=== PATIENT | male | born 1955 | race Caucasian/White ===

== ENCOUNTER 2017-06-04 15:06 | Emergency (ER) | payer MEDICARE, OTHER ==
[2017-06-04] MEDS ORDERED: HYDROcodone/APAP 5-325MG 1 EACH TAB ONE (20:14)
--- NOTE | 2017-06-05 14:39 | XR ---
EXAMINATION TYPE: Abdominal radiographs DATE OF EXAM: 06/04/2017 6:26 PM CLINICAL HISTORY: Chronic abdominal pain TECHNIQUE: Abdominal upright and decubitus radiograph's were obtained. COMPARISON: CT abdomen pelvis dated 04/15/2016 FINDINGS: Numerous loops of dilated large bowel measuring up to 8.7 cm within the transverse colon. T his is mildly progressed from the CT abdomen pelvis dated 04/15/2016 where the colon measured up to 7. 6 cm. There is also gaseous distention of loops of small bowel. No pneumoperitoneum is seen. Thin pro peritoneal fat stripe is noted. Lung bases remain clear. S-shaped scoliotic curvature of the thoracol umbar spine is present. Left femoral arthroplasty is noted as well as mild to moderate degenerative c hanges of the right femoral acetabular joint. IMPRESSION: Chronic gaseous dilation of large bowel loops with distal rectal gas noted suggestive of chronic ileus/Olgivie's syndrome as these findings are only mildly progressed from the exam of 016.
--- NOTE | 2017-06-22 08:45 | CDI ---
Documentation Clarification OP Dear Hazel Brock Please do addendum to ED report for missing Clinical impression. Thank you, Antonio You Energy Conservation Representative If you have any questions, please contact Licensed Staff [facility] at [phone] [facility]
== END 2017-06-04 20:18 | disposition home or self-care (01) ==
LOC: EC 15:06
DX: K63.89 Other specified diseases of intestine (principal); R93.8 Abnormal findings on diagnostic imaging of other specified body structures; Q85.00 Neurofibromatosis, unspecified; M41.86 Other forms of scoliosis, lumbar region; M25.511 Pain in right shoulder; K52.9 Noninfective gastroenteritis and colitis, unspecified
CPT/HCPCS: 74020; 99283

== ENCOUNTER → 2018-05-13 | Outpatient (CLI) | payer MEDICARE, OTHER ==
--- NOTE | 2018-05-13 09:35 | US ---
EXAMINATION TYPE: US kidneys/renal and bladder DATE OF EXAM: 05/13/2018 COMPARISON: CLINICAL HISTORY: R39.14 incomplete bladder emptying, N40.1.... No pain. hx of enlarged bladder. EXAM MEASUREMENTS: Right Kidney: 9.8 x 5.3 x 4.4 cm Left Kidney: 11.2 x 5.5 x 6.5 cm Post Void Residual Volume: 322.2 mL Right Kidney: wnl Left Kidney: appears lobular in appearance Bladder: bladder wall = 3.8 mm, distended Bilateral Jets seen Normal Post Void Residual: no Prominent prostate= 7.4 x 6.3 x 5.9 cm There is no evidence for hydronephrosis at this point in time. No nephrolithiasis is seen. No julian s are identified. The urinary bladder is anechoic. Bilateral ureteral jets are seen. IMPRESSION: 1. Prostate glandular enlargement.
== END | disposition home or self-care (01) ==
LOC: RADUSWWP 08:39
PROVIDERS: ATTEND Urology
DX: N40.0 Benign prostatic hyperplasia without lower urinary tract symptoms (principal); Z88.5 Allergy status to narcotic agent
CPT/HCPCS: 76770

== ENCOUNTER → 2018-10-24 | Outpatient (CLI) | payer MEDICARE, OTHER ==
[2018-10-24 21:28] LABS: Dermato. farinae IgE <0.10 kU/L; Red Top (Bentgrass) IgE <0.10 kU/L
[2018-10-24 21:29] LABS: Cat Epith & Dander IgE <0.10 kU/L; Dog Dander IgE <0.10 kU/L
[2018-10-24 21:31] LABS: Alternaria alternata IgE <0.10 kU/L; Cockroach IgE <0.10 kU/L; Maple (Box Elder) IgE <0.10 kU/L
[2018-10-24 21:32] LABS: Birch IgE <0.10 kU/L; Elm IgE <0.10 kU/L; Oak IgE <0.10 kU/L
[2018-10-24 21:33] LABS: Ragweed,Common IgE <0.10 kU/L
[2018-10-24 21:36] LABS: Codfish IgE <0.10 kU/L; Egg White IgE <0.10 kU/L; Peanut IgE <0.10 kU/L; Soybean IgE <0.10 kU/L
[2018-10-24 21:37] LABS: Clam IgE <0.10 kU/L; Shrimp IgE <0.10 kU/L; Walnut IgE (Food) <0.10 kU/L
[2018-10-24 21:38] LABS: Scallop IgE <0.10 kU/L
[2018-10-24 21:40] LABS: Immunoglobulin E 1.14 IU/mL (0.00-114.00)
[2018-10-24 21:41] LABS: Immunoglobulin E <1.00 IU/mL (0.00-114.00)
== END ==
LOC: LABWHC1 14:04
PROVIDERS: ATTEND Internal Medicine Critical Care Medicine
DX: J45.40 Moderate persistent asthma, uncomplicated (principal)
CPT/HCPCS: 36415; 82785; 86003

== ENCOUNTER → 2020-10-22 | Outpatient (CLI) | payer MEDICARE, OTHER ==
--- NOTE | 2020-10-23 07:11 | US ---
EXAMINATION TYPE: US venous doppler duplex LE LT DATE OF EXAM: 10/22/2020 3:58 PM COMPARISON: NONE CLINICAL HISTORY: R22.42 Swelling left leg. Edema SIDE PERFORMED: Left TECHNIQUE: The lower extremity deep venous system is examined utilizing real time linear array sonog tito with graded compression, doppler sonography and color-flow sonography. VESSELS IMAGED: Common Femoral Vein Deep Femoral Vein Greater Saphenous Vein * Femoral Vein Popliteal Vein Small Saphenous Vein * Proximal Calf Veins (* superficial vessels) Left Leg: Negative for DVT IMPRESSION: No evidence for DVT.
== END | disposition home or self-care (01) ==
LOC: RADUSWWP 15:35
PROVIDERS: ATTEND Internal Medicine
DX: R22.42 Localized swelling, mass and lump, left lower limb (principal); R60.9 Edema, unspecified

== ENCOUNTER 2022-09-30 11:07 | Emergency (ER) | payer MEDICARE, OTHER ==
[2022-09-30 11:17] VITALS: TEMP 97.8
[2022-09-30] MEDS ORDERED: SODIUM CHLORIDE 0.9% 1,000 ML IV STA (11:23)
--- NOTE | 2022-09-30 11:31 | ED ---
General Adult HPI - General Chief complaint: Syncope Stated complaint: Syncope Time Seen by Provider: 09/30/22 11:12 Source: patient, RN notes reviewed Mode of arrival: EMS Limitations: no limitations - History of Present Illness Initial comments: Patient is a pleasant 67-year-old male presenting to the emergency department for near syncopal episode. Episode occurred just prior to arrival while using the restroom. Patient suddenly felt dizzy. Patient did feel a little bit like he was spinning however that has resolved. Patient only feels lightheaded this time without other specific complaints. No history of similar symptoms previously. No chest pain or dyspnea. No weakness or confusion. No abdominal or back pain. - Related Data Home Medications Medication Instructions Recorded Confirmed Aspirin EC [Ecotrin Low Dose] 81 mg PO DAILY 04/15/16 09/30/22 Atorvastatin Calcium [Lipitor] 40 mg PO DAILY 04/15/16 09/30/22 Finasteride [Proscar] 5 mg PO DAILY 04/15/16 09/30/22 Fluticasone Propion/Salmeterol 1 puff INHALATION RT-BID 04/15/16 09/30/22 [Advair 250-50 Diskus] Folic Acid 0.8 mg PO DAILY 04/15/16 09/30/22 Meclizine [Antivert] 25 mg PO TID PRN 04/15/16 09/30/22 Albuterol Sulfate [Proair Hfa] 2 puff INHALATION RT-Q4H PRN 06/05/17 09/30/22 Cetirizine HCl [Zyrtec] 10 mg PO HS 06/05/17 09/30/22 DULoxetine HCL [Cymbalta] 60 mg PO HS 06/05/17 09/30/22 Primidone [Mysoline] 250 mg PO BID 06/05/17 09/30/22 Acetaminophen [Tylenol 8 Hour] 1,300 mg PO BID 09/30/22 09/30/22 [place] Shampoo [T-Gel] 1 applic TOPICAL Q48H 09/30/22 09/30/22 Docusate [Colace] 100 mg PO HS 09/30/22 09/30/22 Famotidine [Pepcid] 40 mg PO BID 09/30/22 09/30/22 Hydrocortisone Cream 1 applic TOPICAL BID PRN 09/30/22 09/30/22 [Hydrocortisone 2.5% Cream] Ketoconazole 2% Shampoo [Nizoral] 1 applic TOPICAL Q48H 09/30/22 09/30/22 Lubiprostone [Amitiza] 24 mcg PO DAILY 09/30/22 09/30/22 tiZANidine [Zanaflex] 4 mg PO BID 09/30/22 09/30/22 tiZANidine [Zanaflex] 4 mg PO DAILY@1300 PRN 09/30/22 09/30/22 Allergies Allergy/AdvReac Type Severity Reaction Status Date / Time morphine AdvReac Severe Does not Verified 09/30/22 12:58 tolerate well Review of Systems ROS Statement: Those systems with pertinent positive or pertinent negative responses have been documented in the HPI. ROS Other: All systems not noted in ROS Statement are negative. Constitutional: Denies: fever Eyes: Denies: eye pain ENT: Denies: ear pain Respiratory: Denies: cough Cardiovascular: Denies: chest pain Endocrine: Denies: fatigue Gastrointestinal: Denies: abdominal pain Genitourinary: Denies: dysuria Musculoskeletal: Denies: back pain Skin: Denies: rash Neurological: Reports: as per HPI. Denies: headache, weakness, confusion Past Medical History Past Medical History: Asthma, Hyperlipidemia, Neurologic Disorder, Pneumonia, Syncope Additional Past Medical History / Comment(s): neurofibramatosis disease; Scoliosis; Tremor; Duodenal carcinoid tumor History of Any Multi-Drug Resistant Organisms: None Reported Past Surgical History: Bowel Resection, Joint Replacement Additional Past Surgical History / Comment(s): Left total hip Past Anesthesia/Blood Transfusion Reactions: No Reported Reaction Past Psychological History: Depression Past Alcohol Use History: None Reported Past Drug Use History: None Reported - Past Family History Mother Family Medical History: COPD Additional Family Medical History / Comment(s): at 80 Father Family Medical History: Myocardial Infarction (NE) Additional Family Medical History / Comment(s): at age 55 General Exam Limitations: no limitations General appearance: alert, in no apparent distress Head exam: Present: normocephalic Eye exam: Present: normal appearance Neck exam: Present: normal inspection Respiratory exam: Present: normal lung sounds bilaterally Cardiovascular Exam: Present: regular rate, normal rhythm Expanded Peripheral pulses: 2+: Radial (R), Radial (L), Dorsalis Pedis (R), Dorsalis Pedis (L) GI/Abdominal exam: Present: soft. Absent: tenderness, pulsatile mass Extremities exam: Present: normal inspection. Absent: pedal edema, calf tenderness Neurological exam: Present: alert, oriented X3, CN II-XII intact. Absent: motor sensory deficit Expanded Neurological exam: Present: protecting the airway Patient oriented to: Present: person, place, time Speech: Present: fluid speech Motor strength exam: RUE: 5, LUE: 5, RLE: 5, LLE: 5 Eye Response: (4) open spontaneously Motor Response: (6) obeys commands Verbal Response: (5) oriented Psychiatric exam: Present: normal affect, normal mood Skin exam: Present: other (Diffuse lesions consistent with neurofibromatosis) Course Vital Signs 09/30/22 09/30/22 09/30/22 11:10 13:18 13:20 Temperature 97.8 F Pulse Rate 94 Pulse Rate [ 80 Sitting Table Games Floor Supervisor] Pulse Rate [ Standing Table Games Floor Supervisor ] Pulse Rate [ 86 Supine Table Games Floor Supervisor] Respiratory 18 19 17 Rate Blood Pressure 113/80 Blood Pressure 110/77 [Left Arm Sitting] Blood Pressure [Left Arm Standing] Blood Pressure 108/83 [Left Arm Supine] Blood Pressure 108/83 [Left Arm] O2 Sat by Pulse 99 98 100 Oximetry 09/30/22 13:22 Temperature Pulse Rate Pulse Rate [ Sitting Table Games Floor Supervisor] Pulse Rate [ 100 Standing Table Games Floor Supervisor ] Pulse Rate [ Supine Table Games Floor Supervisor] Respiratory 20 Rate Blood Pressure Blood Pressure [Left Arm Sitting] Blood Pressure 103/69 [Left Arm Standing] Blood Pressure [Left Arm Supine] Blood Pressure [Left Arm] O2 Sat by Pulse 95 Oximetry EKG Findings - EKG Results: EKG: interpreted by ERMD (Incomplete right bundle-branch block), sinus rhythm, normal axis, normal ST/T Medical Decision Making - Medical Decision Making Was pt. sent in by a medical professional or institution (, PA, BARMAN, urgent care, hospital, or shelter...) When possible be specific @ -No Did you speak to anyone other than the patient for history (EMS, parent, family, police, friend...)? What history was obtained from this source @ -No Did you review nursing and triage notes (agree or disagree)? Why? @ -I reviewed and agree with nursing and triage notes Were old charts reviewed (outside hosp., previous admission, EMS record, old EK G, old radiological studies, urgent care reports/EKG's, shelter records)? Report findings @ -No old charts were reviewed Differential Diagnosis (chest pain, altered mental status, abdominal pain women, abdominal pain men, vaginal bleeding, weakness, fever, dyspnea, syncope, headache, dizziness, GI bleed, back pain, seizure, CVA, palpatations, mental health)? @ -Differential Syncope: Valvular disease, hypertrophic cardiomyopathy, pulmonary embolism, tamponade, tachycardia, bradycardia, NE, hypovolemia, hemorrhage, dissection, anemia, intracranial hemorrhage, seizure, hypoglycemia, carbon monoxide poisoning, this is not meant to be an all-inclusive list. EKG interpreted by me (3pts min.). @ -As above X-rays interpreted by me (1pt min.). @ -2 view chest x-ray reveals no acute process. Spine curvature CT interpreted by me (1pt min.). @ -Report reviewed U/S interpreted by me (1pt. min.). @ -None done What testing was considered but not performed or refused? (CT, X-rays, U/S, labs)? Why? @ -None What meds were considered but not given or refused? Why? @ -None Did you discuss the management of the patient with other professionals (professionals i.e. , PA, BARMAN, lab, RT, psych nurse, high school social science teacher, pumping supervisor, teacher, founder and chief executive officer, case filler)? Give summary @ -No Was smoking cessation discussed for >3mins.? @ -No Was critical care preformed (if so, how long)? @ -No Were there social determinants of health that impacted care today? How? (Homelessness, low income, unemployed, alcoholism, drug addiction, transportation, low edu. Level, literacy, decrease access to med. care, fci, rehab)? @ -No Was there de-escalation of care discussed even if they declined (Discuss DNR or withdrawal of care, Hospice)? DNR status @ -No What co-morbidities impacted this encounter? (DM, HTN, Smoking, COPD, CAD, Cancer, CVA, ARF, Chemo, Hep., AIDS, mental health diagnosis, sleep apnea, morbid obesity)? @ -None Was patient admitted / discharged? Hospital course, mention meds given and route, prescriptions, significant lab abnormalities, going to OR and other pertinent info. @ -Patient reevaluated. Patient family updated. Patient is feeling much better. Patient will be discharged for follow-up with primary care physician Undiagnosed new problem with uncertain prognosis? @ -No Drug Therapy requiring intensive monitoring for toxicity (Heparin, Nitro, Insulin, Cardizem)? @ -No Were any procedures done? @ -No Diagnosis/symptom? @ -Near-syncope Acute, or Chronic, or Acute on Chronic? @ -Acute Uncomplicated (without systemic symptoms) or Complicated (systemic symptoms)? @ -default Side effects of treatment? @ -No Exacerbation, Progression, or Severe Exacerbation? @ -No Poses a threat to life or bodily function? How? (Chest pain, USA, NE, pneumonia, PE, COPD, DKA, ARF, appy, cholecystitis, CVA, Diverticulitis, Homicidal, Suicidal, threat to staff... and all critical care pts) @ -No - Lab Data Result diagrams: 09/30/22 11:27 09/30/22 11:27 Lab Results 09/30/22 09/30/22 09/30/22 Range/Units 11:27 11:27 11:27 WBC 9.6 (3.8-10.6) k/uL RBC 5.20 (4.30-5.90) m/uL Hgb 17.4 (13.0-17.5) gm/dL Hct 51.3 (39.0-53.0) % MCV 98.6 (80.0-100.0) fL MCH 33.5 (25.0-35.0) pg MCHC 34.0 (31.0-37.0) g/dL RDW 12.1 (11.5-15.5) % Plt Count 249 (150-450) k/uL MPV 8.8 Neutrophils % (Manual) 73 % Lymphocytes % (Manual) 11 % Monocytes % (Manual) 6 % Eosinophils % (Manual) 10 % Neutrophils # (Manual) 7.01 (1.3-7.7) k/uL Lymphocytes # (Manual) 1.06 (1.0-4.8) k/uL Monocytes # (Manual) 0.58 (0-1.0) k/uL Eosinophils # (Manual) 0.96 H (0-0.7) k/uL Nucleated RBCs 0 (0-0) /100 WBC Manual Slide Review Performed RBC Morphology Normal PT 11.2 (9.0-12.0) sec INR 1.1 (<1.2) APTT 24.6 (22.0-30.0) sec D-Dimer 0.61 H (<0.60) mg/L FEU Sodium 139 (137-145) mmol/L Potassium 4.2 (3.5-5.1) mmol/L Chloride 104 (98-107) mmol/L Carbon Dioxide 26 (22-30) mmol/L Anion Gap 9 mmol/L BUN 15 (9-20) mg/dL Creatinine 0.76 (0.66-1.25) mg/dL Est GFR (CKD-EPI)AfAm >90 (>60 ml/min/1.73 sqM) Est GFR (CKD-EPI)NonAf >90 (>60 ml/min/1.73 sqM) Glucose 113 H (74-99) mg/dL Calcium 9.7 (8.4-10.2) mg/dL Magnesium 2.1 (1.6-2.3) mg/dL Total Bilirubin 0.8 (0.2-1.3) mg/dL AST 41 (17-59) U/L ALT 32 (4-49) U/L Alkaline Phosphatase 151 H (38-126) U/L Troponin I (0.000-0.034) ng/mL Total Protein 7.7 (6.3-8.2) g/dL Albumin 4.5 (3.5-5.0) g/dL 09/30/22 Range/Units 11:27 WBC (3.8-10.6) k/uL RBC (4.30-5.90) m/uL Hgb (13.0-17.5) gm/dL Hct (39.0-53.0) % MCV (80.0-100.0) fL MCH (25.0-35.0) pg MCHC (31.0-37.0) g/dL RDW (11.5-15.5) % Plt Count (150-450) k/uL MPV Neutrophils % (Manual) % Lymphocytes % (Manual) % Monocytes % (Manual) % Eosinophils % (Manual) % Neutrophils # (Manual) (1.3-7.7) k/uL Lymphocytes # (Manual) (1.0-4.8) k/uL Monocytes # (Manual) (0-1.0) k/uL Eosinophils # (Manual) (0-0.7) k/uL Nucleated RBCs (0-0) /100 WBC Manual Slide Review RBC Morphology PT (9.0-12.0) sec INR (<1.2) APTT (22.0-30.0) sec D-Dimer (<0.60) mg/L FEU Sodium (137-145) mmol/L Potassium (3.5-5.1) mmol/L Chloride (98-107) mmol/L Carbon Dioxide (22-30) mmol/L Anion Gap mmol/L BUN (9-20) mg/dL Creatinine (0.66-1.25) mg/dL Est GFR (CKD-EPI)AfAm (>60 ml/min/1.73 sqM) Est GFR (CKD-EPI)NonAf (>60 ml/min/1.73 sqM) Glucose (74-99) mg/dL Calcium (8.4-10.2) mg/dL Magnesium (1.6-2.3) mg/dL Total Bilirubin (0.2-1.3) mg/dL AST (17-59) U/L ALT (4-49) U/L Alkaline Phosphatase (38-126) U/L Troponin I <0.012 (0.000-0.034) ng/mL Total Protein (6.3-8.2) g/dL Albumin (3.5-5.0) g/dL Disposition Clinical Impression: Near syncope Disposition: HOME SELF-CARE Condition: Stable Instructions (If sedation given, give patient instructions): Near Syncope (ED) Additional Instructions: Please do follow-up with primary care physician in the next day or 2 for recheck. Return for weakness, passing out, difficulty breathing, worsening or changing symptoms or any other concerns. Is patient prescribed a controlled substance at d/c from ED?: No Referrals: Daron Ruggiero MD [Primary Care Provider] - 1-2 days Time of Disposition: 14:08
[2022-09-30 11:54] LABS: ALT 32 U/L (4-49); African American GFR (CKD) >90 (>60 ml/min/1.73 sqM); Anion Gap 9 mmol/L; Blood Urea Nitrogen 15 mg/dL (9-20); Calcium 9.7 mg/dL (8.4-10.2); Carbon Dioxide 26 mmol/L (22-30); Chloride 104 mmol/L (98-107); Glucose 113 mg/dL (74-99); Non-African American GFR(CKD) >90 (>60 ml/min/1.73 sqM); Sodium 139 mmol/L (137-145); Total Bilirubin 0.8 mg/dL (0.2-1.3)
[2022-09-30 11:57] LABS: AST 41 U/L (17-59); Alkaline Phosphatase 151 U/L (38-126); Magnesium 2.1 mg/dL (1.6-2.3); Potassium 4.2 mmol/L (3.5-5.1); Total Protein 7.7 g/dL (6.3-8.2)
[2022-09-30 11:58] LABS: Albumin 4.5 g/dL (3.5-5.0)
[2022-09-30 12:01] LABS: HCT 51.3 % (39.0-53.0); HGB 17.4 gm/dL (13.0-17.5); MCH 33.5 pg (25.0-35.0); MCV 98.6 fL (80.0-100.0); Mean Platelet Volume 8.8; Platelet Count 249 k/uL (150-450); RDW 12.1 % (11.5-15.5); WBC 9.6 k/uL (3.8-10.6)
--- NOTE | 2022-09-30 12:01 | XR ---
EXAMINATION TYPE: XR chest 2V DATE OF EXAM: 09/30/2022 11:56 AM COMPARISON: Chest radiographs from 03/09/2022. TECHNIQUE: XR chest 2V Frontal and lateral views of the chest. CLINICAL INDICATION:Male, 67 years old with history of syncope; FINDINGS: Lungs/Pleura: There is no evidence of pleural effusion, focal consolidation, or pneumothorax. Azygou s lobe fissure incidentally noted. Pulmonary vascularity: Unremarkable. Heart/mediastinum: Cardiomediastinal silhouette is unremarkable. Musculoskeletal: No acute osseous pathology. Severe scar curvature of the spine redemonstrated. IMPRESSION: Chronic changes without evidence for acute process.
[2022-09-30 12:11] LABS: INR 1.1 (<1.2); Partial Thromboplastin Time 24.6 sec (22.0-30.0); Prothrombin Time 11.2 sec (9.0-12.0)
--- NOTE | 2022-09-30 12:14 | CT ---
EXAMINATION TYPE: CT brain wo con DATE OF EXAM: 09/30/2022 COMPARISON: MRI brain 12/28/2011 INDICATION: syncope DLP: 1142.4 mGycm, Automated exposure control for dose reduction was used. CONTRAST: None CT of the brain is performed utilizing 3 mm thick sections through the posterior fossa and 3 mm thick sections through the remaining calvarium. Study is performed within 24 hours of arrival to the hosp ital. No abnormal hyperdensity is present to suggest an acute intracranial hemorrhage. There is hypodensity within the inferior left cerebellum. There is a hypodensity through the right oc cipital region with peripheral calcification. Some coarse calcifications No suspicious adjacent edema is evident. There appears to be some ex vacuo effect on the right lateral ventricle especially the o ccipital horn. No acute infarcts are evident. Ventricles and sulci are appropriate for the patient age. Paranasal sinuses and mastoid air cells within the [id number] are clear. IMPRESSIONS: 1. 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 Differential could include old posttraumatic change or old hemorrhage with encephalomalacia. 2. Circumscribed hypodensity within the inferior left cerebellum could be an old lacunar infarct. 3. Findings appear stable from a prior MRI of 2011. No acute intracranial process radiographically ap parent
[2022-09-30 12:34] LABS: Eosinophils # (M) 0.96 k/uL (0-0.7); Lymphocytes # (M) 1.06 k/uL (1.0-4.8); Monocytes # (M) 0.58 k/uL (0-1.0); Neutrophils # (M) 7.01 k/uL (1.3-7.7); Neutrophils % (M) 73 %; Nucleated Red Blood Cells 0 /100 WBC (0-0); Total Cells Counted 100
[2022-09-30 12:35] LABS: RBC Morphology Normal
[2022-09-30 13:25] VITALS: BP 103/69; PULSE 100
[2022-09-30 14:05] VITALS: RESP 20
== END 2022-09-30 14:30 | disposition home or self-care (01) ==
LOC: EC 11:07
DX: R55 Syncope and collapse (principal); J45.909 Unspecified asthma, uncomplicated; E78.5 Hyperlipidemia, unspecified; F32.A Depression, unspecified; Z79.899 Other long term (current) drug therapy; Z79.82 Long term (current) use of aspirin; Z88.5 Allergy status to narcotic agent; Z86.73 Personal history of transient ischemic attack (TIA), and cerebral infarction without residual deficits; Z79.51 Long term (current) use of inhaled steroids
CPT/HCPCS: 36415; 70450; 71046; 80053; 83735; 84484; 85025; 85379; 85610; 85730; 93005; 96360; 99285

== ENCOUNTER → 2023-09-07 | Outpatient (CLI) | payer MEDICARE, OTHER ==
--- NOTE | 2023-09-07 12:32 | FL ---
COMPARISON: NONE DATE OF EXAM: 09/07/2023 HISTORY: Dysphasia A number of thin and thick substances were ingested under the care of the department of speech pathol ogy. There is deep penetration and silent aspiration with thin barium. There were no images submitte d. 3 min 39 sec fluoro time. No DAP time provided. IMPRESSION: See above.
== END | disposition home or self-care (01) ==
LOC: RADFLMAIN 11:13
PROVIDERS: ATTEND Internal Medicine
DX: R47.02 Dysphasia (principal); Y84.4 Aspiration of fluid as the cause of abnormal reaction of the patient, or of later complication, without mention of misadventure at the time of the procedure
CPT/HCPCS: 74230

== ENCOUNTER → 2023-11-12 | Outpatient (CLI) | payer MEDICARE, OTHER ==
--- NOTE | 2023-11-12 12:34 | FL ---
COMPARISON: NONE DATE OF EXAM: 11/12/2023 HISTORY: This patient A number of thin and thick substances were ingested under the care of the department of speech pathol ogy. There is penetration within barium with no evidence of cough response. Remaining substances dem onstrated no evidence of aspiration or penetration. DAP are not provided. No images provided. 2 minut es 51 seconds of fluoroscopy. IMPRESSION: 1. Exam positive for silent aspiration with thin barium.
== END | disposition home or self-care (01) ==
LOC: RADFLMAIN 11:41
PROVIDERS: ATTEND Internal Medicine
DX: Y84.4 Aspiration of fluid as the cause of abnormal reaction of the patient, or of later complication, without mention of misadventure at the time of the procedure (principal)
CPT/HCPCS: 74230

== ENCOUNTER → 2024-03-15 | Outpatient (CLI) | payer MEDICARE, OTHER ==
--- NOTE | 2024-03-15 12:48 | FL ---
Exam Date: 03/15/2024 12:27 PM. Modified barium swallow for dysphagia. Consistencies administered: Various consistency of barium. Fluoro time: 2.44 MINS Please see speech pathology report. DAP: Not reported mGym2 Gycm2 [facility], , 03/15/2024 12:46 PM
== END | disposition home or self-care (01) ==
LOC: RADFLMAIN 10:52
PROVIDERS: ATTEND Internal Medicine
DX: R13.12 Dysphagia, oropharyngeal phase (principal)
CPT/HCPCS: 74230